=== PATIENT | female | born 1990 | race Caucasian/White ===

== ENCOUNTER 2019-12-02 23:49 | Emergency (ER) | payer MEDICAID, SELFPAY ==
[2019-12-02 23:50] VITALS: BP 135/79; PULSE 103; RESP 16; TEMP 36.9; O2SAT 98; BMI 32.9
--- NOTE | 2019-12-03 00:06 | XR_ITS ---
PROCEDURE: XR FOOT RT MIN 3V CLINICAL INDICATION: fall Pain COMPARISON: CR FTR3 FOOT-RT-3 VIEWS from 06/20/2014 FINDINGS: No fracture or dislocation. No lytic or blastic change. There is normal mineralization. The joint spaces are well-preserved. No significant degenerative/arthritic changes. No erosive changes evident. Other findings:None. IMPRESSION: No acute findings. Dictated by: Gideon Napier MD 12/03/2019 05:25 Gideon Napier MD in [place] 12/03/2019 05:25
--- NOTE | 2019-12-03 00:06 | XR_ITS ---
PROCEDURE: XR ANKLE RT MIN 3V CLINICAL INDICATION: fall COMPARISON: No exams were available for comparison FINDINGS: No fracture or dislocation. No lytic or blastic change. There is normal mineralization. The joint spaces are well-preserved. No significant degenerative/arthritic changes. No erosive changes evident. Other findings:None. IMPRESSION: No acute findings. Dictated by: Gideon Napier MD 12/03/2019 05:26 Gideon Napier MD in [facility] 12/03/2019 05:26
--- NOTE | 2019-12-03 00:23 | HMH.EDLOEX ---
ED Disposition Clinical Impression: Ankle sprain and strain Sprain of foot, right Qualifiers: Encounter type: initial encounter Qualified Code(s): S93.601A - Unspecified sprain of right foot, initial encounter Disposition: Home, Self-Care Condition on Discharge: Good Instructions: DI for Ankle Sprain Additional Instructions: ice and see pcp and podiatry for follow up Prescriptions: Meloxicam [Mobic 15 mg tab] 15 mg PO DAILY #7 tab Transmission Status: Pending to [facility] Referrals: PCP,Hiral [Primary Care Provider] - Albina Holbrook DPM [Staff Physician] - - Critical Care Critical Care Time: No Attestation: On 12/02/19, the high probability of a clinically significant, sudden or life threatening deterioration of the following system(s) required my full and direct attention, intervention and personal management. The time I documented below is in addition to time spent performing reported procedures but includes the following listed in this critical care notation. Medical Decision Making - Medical Records Medical records reviewed: Yes: I reviewed the patient's medical records. - [place] Inquiry Pt receiving controlled substance: No Vital Signs: 12/02/19 23:50 Temperature 98.4 F Temperature Source Oral Pulse Rate [Right] 103 H Respiratory Rate 16 Blood Pressure [Right Arm] 135/79 Blood Pressure Mean [Right Arm] 97 Blood Pressure Source [Right Arm] Automatic Cuff Blood Pressure Position [Right Arm] Sitting 02 Sat by Pulse Oximetry 98 Oxygen Delivery Method Room Air Orders (Tests/Meds): ORDERS Category Date Time Status XR ankle RT min 3V Stat Exams 12/03/19 00:06 Taken XR foot RT min 3V Stat Exams 12/03/19 00:06 Taken - Radiology Data #1 Image(s): Ankle, Foot/Toes Image Reviewed: Yes I reviewed the patient's radiology image Preliminary Findings: No Fracture Seen Lower Extremity Injury HPI - General Chief Complaint: Extremity Injury, Lower Stated Complaint: AO fell down stairs twisted R ankle/foot Time Seen by Provider: 12/03/19 00:00 Mode of Arrival: Wheelchair Source of Information: Patient, Medical Record Limitations: No Limitations Description of Symptoms (Recalled from ER Triage Doc. by RN): Pt twisted her right ankle and c/o pain - History of Present Illness HPI Narrative: acute injury rt foot/ankle tonight MD complaint: ankle injury, foot injury Onset (ago): hour(s) Injury: Right: ankle, foot Type of Injury: eversion Place: home Severity: moderate Context: fall Associated symptoms: unable to bear weight Other symptoms: none - Related Data Previous Rx's Medication Instructions Recorded Cyclobenzaprine HCl [Flexeril 10mg 10 mg PO TID PRN 30 Days #21 tab 08/26/18 tablet] predniSONE [Prednisone 20mg 20 mg PO BID #10 tab 08/26/18 Tab] Meloxicam [Mobic 15 mg tab] 15 mg PO DAILY #7 tab 12/03/19 Allergies Allergy/AdvReac Type Severity Reaction Status Date / Time No Known Allergies Allergy Verified 08/26/18 23:02 [facility] History - Hepatitis A Screen Drug use history?: No High risk sexual behaviors?: No History of sexually transmitted infection?: No Currently employed?: No Childcare worker?: No Do you have indoor plumbing?: No Do you have electricity?: Yes Attestation statement:: This patient has been screened for Hepatitis A risk factors. I have reviewed the patient's past medical history: Yes Medical History: Reports:: MRSA Denies:: Cancer, Diabetes Mellitus Type 1, Diabetes Mellitus Type 2 Amputation: No Fractures: No - Social History Smoking Status: Current every day smoker Tobacco Type: cigarettes # Packs/Day (cigarettes): 1 Alcohol Intake: never Occupational Status: unemployed Housing: house ROS Obtained: Yes All systems reviewed & no additional complaints - Constitutional Constitutional: Denies fever(s) - Eyes Eyes: Denies change in vision - ENT Ears, Nose, Mouth, and Throat: Denies sore
[2019-12-03 00:41] VITALS: BP 117/79; PULSE 103; RESP 16; TEMP 36.7; O2SAT 97
== END 2019-12-03 00:47 | disposition home or self-care (01) ==
PROVIDERS: Emergency Provider Emergency Medicine
DX: S93.401A Sprain of unspecified ligament of right ankle, initial encounter (principal); S93.601A Unspecified sprain of right foot, initial encounter; X50.1XXA Overexertion from prolonged static or awkward postures, initial encounter; Y92.019 Unspecified place in single-family (private) house as the place of occurrence of the external cause; F17.210 Nicotine dependence, cigarettes, uncomplicated
CPT/HCPCS: 29515; 73610; 73630; 99283

== ENCOUNTER 2020-09-20 00:59 | Emergency (ER) | payer MEDICAID, SELFPAY ==
[2020-09-20 01:51] VITALS: BP 110/73; PULSE 77; RESP 18; TEMP 36.8; O2SAT 100; BMI 26.5
--- NOTE | 2020-09-20 02:07 | XR_ITS ---
PROCEDURE INFORMATION: Exam: XR Chest Exam date and time: 09/20/2020 2:07 AM Age: 30 years old Clinical indication: Cough and other: Congestion; Patient HX: Congestion and unproductive cough; Additional info: Cogestion w/ unproductive cough TECHNIQUE: Imaging protocol: XR of the chest. Views: 2 views. COMPARISON: CR Shoulder L 08/26/2018 11:01 PM FINDINGS: Lungs: No acute appearing consolidation. Scattered calcified hilar lymph nodes/and pulmonary parenchymal granulomata bilaterally, left greater than right. Pleural spaces: No pleural effusion. No pneumothorax. Heart/Mediastinum: See above. No cardiomegaly. Bones/joints: Levoscoliosis of the thoracic spine. IMPRESSION: 1. No acute cardiopulmonary findings. 2. Calcified bilateral hilar and parenchymal granulomata.
[2020-09-20 02:15] LABS: Adenovirus,PCR Not Detected (NotDetected); Bordetella Pertussis Not Detected (NotDetected); Chlamydophila Pneumoniae, PCR Not Detected (NotDetected); Coronavirus 19, PCR Not Detected (NotDetected); Coronavirus 229E Not Detected (NotDetected); Coronavirus NL63 Not Detected (NotDetected); Coronovirus HKU1,PCR Not Detected (NotDetected); Human Metapneumovirus Not Detected (NotDetected); Influenza A, PCR Not Detected (NotDetected); Influenza AH1, 2009 Not Detected (NotDetected); Influenza AH1, PCR Not Detected (NotDetected); Influenza AH3,PCR Not Detected (NotDetected); Influenza B, PCR Not Detected (NotDetected); Mycoplasma Pneumoniae, PCR Not Detected (NotDetected); Parainfluenza 1, PCR Not Detected (NotDetected); Parainfluenza 2, PCR Not Detected (NotDetected); Parainfluenza 3, PCR Not Detected (NotDetected); Parainfluenza 4, PCR Not Detected (NotDetected); Respiratory Syncytial Virus Not Detected (NotDetected); Rhinovirus/Enterovirus Not Detected (NotDetected)
[2020-09-20 02:21] LABS: Chloride 101 mmol/L (98-107); Sodium 140 mmol/L (136-145)
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
[2020-09-20 02:22] LABS: Potassium 3.8 mmoL/L (3.5-5.1)
[2020-09-20 02:23] LABS: Basophils # 0.2 K/mm3 (0-0.2); Eosinophils # 0.4 K/mm3 (0.0-0.4); Eosinophils % 2.8 % (0.1-12.0); Hematocrit 46.8 % (37.0-47.0); Hemoglobin 15.8 g/dL (12.2-16.2); Lymphocytes # 2.9 K/mm3 (0.7-4.5); Mean Corpuscular HGB Conc 33.7 g/dL (31.8-35.4); Mean Corpuscular Hemoglobin 30.2 pg (27.0-31.2); Mean Corpuscular Volume 89.6 fl (81-99); Monocytes # 0.5 K/mm3 (0.1-1.0); Monocytes % 3.3 % (1.7-9.3); Neutrophils # 10.5 K/mm3 (1.8-7.8); Platelet Count 273 K/mm3 (142-424); Red Blood Count 5.22 M/mm3 (4.20-5.40); Red Cell Distribution Width 13.5 % (11.5-17.5); White Blood Count 14.4 K/mm3 (4.8-10.8)
[2020-09-20 02:24] LABS: Alanine Aminotransferase 15 U/L (12-78); Alkaline Phosphatase 59 U/L (38-126); Aspartate Amino Transferase 28 U/L (14-36); Bilirubin,Total 0.4 mg/dl (0.2-1.3); Blood Urea Nitrogen 8 mg/dl (7-17); Creatinine Clearance Estimated 108 mL/min (50-200); Estimated Glomerular Filt Rate 85 ml/min (>60); GFR (African American) 103 ML/MIN (>60)
[2020-09-20 02:25] LABS: Albumin Level 4.6 g/dl (3.5-5.0); Albumin/Globulin Ratio 1.5 (1.1-1.8); Anion Gap 11.8 mEq/L (5-15); Calcium 9.2 mg/dl (8.4-10.2); Carbon Dioxide 31 mmol/L (22.0-30.0); Glucose 101 mg/dl (74-100); Total Protein,Serum 7.6 g/dl (6.3-8.2)
[2020-09-20 03:25] LABS: C-Reactive Protein 0.6 mg/L (0-4)
[2020-09-20 03:30] LABS: Erythrocyte Sedimentation Rate 2 mm/hr (0-20)
[2020-09-20 03:39] LABS: Procalcitonin 0.048 ng/mL (0.0-2.0)
[2020-09-20 03:52] VITALS: BP 105/62; PULSE 78; RESP 18; TEMP 36.8; O2SAT 100
[2020-09-20 06:45] LABS: Coronavirus OC43 Detected (NotDetected)
== END 2020-09-20 03:58 | disposition home or self-care (01) ==
PROVIDERS: Emergency Provider Emergency Medicine
DX: J01.90 Acute sinusitis, unspecified (principal); F17.290 Nicotine dependence, other tobacco product, uncomplicated
CPT/HCPCS: 71046; 80053; 84145; 85025; 85651; 86140; 87581; 87633; 87798; 96365; 96366; 96375; 99283

== ENCOUNTER 2020-11-13 16:15 | Emergency (ER) | payer MEDICAID, SELFPAY ==
[2020-11-13 16:15] VITALS: BP 137/86; PULSE 99; RESP 18; TEMP 36.8; O2SAT 97
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
--- NOTE | 2020-11-13 16:30 | PC.NURSE ---
PT TO CT SCANNER AT THIS TIME.
[2020-11-13 16:34] LABS: Basophils # 0.2 K/mm3 (0-0.2); Basophils % 0.9 % (0.1-2.0); Eosinophils # 0.2 K/mm3 (0.0-0.4); Eosinophils % 1.1 % (0.1-12.0); Hematocrit 47.9 % (37.0-47.0); Hemoglobin 15.7 g/dL (12.2-16.2); Lymphocytes # 2.2 K/mm3 (0.7-4.5); Lymphocytes % 13.1 % (10-50); Mean Corpuscular HGB Conc 32.9 g/dL (31.8-35.4); Mean Corpuscular Hemoglobin 30.4 pg (27.0-31.2); Mean Corpuscular Volume 92.5 fl (81-99); Mean Platelet Volume 8.3 fl (7.4-10.4); Monocytes # 0.6 K/mm3 (0.1-1.0); Monocytes % 3.7 % (1.7-9.3); Neutrophils # 13.7 K/mm3 (1.8-7.8); Neutrophils % 81.2 % (37.0-80.0); Platelet Count 321 K/mm3 (142-424); Red Blood Count 5.18 M/mm3 (4.20-5.40); Red Cell Distribution Width 13.5 % (11.5-17.5); White Blood Count 16.9 K/mm3 (4.8-10.8)
[2020-11-13 16:37] LABS: MANUAL DIFFERENTIAL MANUAL DIFFERENTIAL (MANUAL DIFF)
[2020-11-13 16:41] LABS: Lipase 94 U/L (23-300)
[2020-11-13 16:42] LABS: Alanine Aminotransferase 120 U/L (12-78); Albumin Level 4.1 g/dl (3.5-5.0); Albumin/Globulin Ratio 1.4 (1.1-1.8); Alkaline Phosphatase 58 U/L (38-126); Anion Gap 11.6 mEq/L (5-15); Aspartate Amino Transferase 63 U/L (14-36); Bilirubin,Total 0.4 mg/dl (0.2-1.3); Blood Urea Nitrogen 12 mg/dl (7-17); Calcium 8.7 mg/dl (8.4-10.2); Carbon Dioxide 27 mmol/L (22.0-30.0); Chloride 101 mmol/L (98-107); Estimated Glomerular Filt Rate 85 ml/min (>60); GFR (African American) 103 ML/MIN (>60); Glucose 94 mg/dl (74-100); Potassium 4.6 mmoL/L (3.5-5.1); Sodium 135 mmol/L (136-145); Total Protein,Serum 7.1 g/dl (6.3-8.2)
[2020-11-13 16:44] LABS: Eosinophils % 3 % (0-3); Lymphocytes % 9 % (10-50); Monocytes % 3 % (2-9); Neutrophils % 85 % (42-76); Platelet Estimate Normal; RBC Morphology Normal; Total Cells Counted 100
[2020-11-13 17:59] VITALS: BMI 29.2
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
[2020-11-13 18:45] VITALS: BP 120/73; PULSE 65; RESP 18; TEMP 37; O2SAT 96
== END 2020-11-13 18:55 | disposition home or self-care (01) ==
PROVIDERS: Emergency Provider Emergency Medicine
DX: S61.411A Laceration without foreign body of right hand, initial encounter (principal); S06.899A Other specified intracranial injury with loss of consciousness of unspecified duration, initial encounter; V47.1XXA Car passenger injured in collision with fixed or stationary object in nontraffic accident, initial encounter; Y92.488 Other paved roadways as the place of occurrence of the external cause; Z23 Encounter for immunization
CPT/HCPCS: 70450; 71045; 72125; 72170; 73100; 73130; 80053; 83690; 85007; 85025; 90471; 90715; 99281